=== PATIENT | male | born 1995 | race Caucasian/White ===

== ENCOUNTER 2018-04-15 14:57 | Emergency (ER) | payer SELFPAY ==
--- NOTE | 2018-04-15 16:09 | Diagnostic Imaging Report ---
YUDITH LUNDBERG [facility] [address] [facility] [address] [place] [address]. [id number] Report Submission Date: Apr 15, 2018 4:07:23 PM CDT Patient Study Name: MARIA EUGENIA MERIDA Date: Apr 15, 2018 3:50:04 PM CDT Modality Type: DX Gender: M Description: SHOULDER : 89 Institution: [facility] Physician: YUDITH LUNDBERG Right clavicle, two views. History: CLAVICLE PAIN PT STATES TREE FELL ON HIM Findings: There is a fracture of the middle 3rd of the clavicle with superior displacement of 1.9 cm of the medial portion. The acromioclavicular joint is normal. The imaged portion of the right hemithorax is otherwise normal. Impression: 1. Displaced right mid clavicular fracture. Electronically signed on Apr 15, 2018 4:07:23 PM CDT by: Diego GALLARDO
--- NOTE | 2018-04-15 16:10 | Diagnostic Imaging Report ---
YUDITH LUNDBERG [facility] [address] [facility] [address] [place], [place]. [address] Report Submission Date: Apr 15, 2018 4:08:31 PM CDT Patient Study Name: MARIA EUGENIA MERIDA Date: Apr 15, 2018 3:46:02 PM CDT Modality Type: CT\SR Gender: M Description: CT BRAIN W/O CONTRAST : 94 Institution: [facility] Physician: YUDITH LUNDBERG CT HEAD WO CONTRAST History: HEAD INJURY PT STATES TREE FELL ON HIM Technique: Standard noncontrast CT was performed with contiguous axial images acquired from skull base to vertex. Findings: There is no acute extra-axial fluid collection. Ventricles are of normal size, shape, and morphology. No mass effect or midline shift is present. No evidence of acute hemorrhage. The logan-white matter differentiation is normal. The visualized portions of the orbits, and paranasal sinuses, and mastoids are normal. No fractures are identified. Impression: 1. Normal non contrast brain CT. Electronically signed on Apr 15, 2018 4:08:31 PM CDT by: Diego Franco [facility]
--- NOTE | 2018-04-15 16:10 | Diagnostic Imaging Report ---
YUDITH LUNDBERG [facility] [address] [facility] [address] [place] [address]. [id number] Report Submission Date: Apr 15, 2018 4:09:13 PM CDT Patient Study Name: MARIA EUGENIA MERIDA Date: Apr 15, 2018 3:45:33 PM CDT Modality Type: DX Gender: M Description: SPINE : 89 Institution: [facility] Physician: YUDITH LUNDBERG Cervical spine, three views History:HEAD INJURY PT STATES TREE FELL ON HIM Findings: Vertebral body heights and alignments are normal. No significant intervertebral disc space narrowing. The facets are normal. No prevertebral soft tissue swelling. Impression: 1. No osseous abnormality. Electronically signed on Apr 15, 2018 4:09:13 PM CDT by: Diego GALLARDO
--- NOTE | 2018-04-15 16:16 | ED Physician Documentation ---
Upper Extremity Injury - HPI Stated Complaint: R shoulder pain Chief Complaint: Upper Extremity Injury Additional Information: Patient presents to ED with right shoulder pain after a tree (measuring 12 inches in diameter) fell on him while he was cutting wood today. He states the tree fell and struck him in the right shoulder/head. He thinks he lost consciousness for about 30 seconds. He has been ambulatory since that time. Onset: just prior to arrival Where: other (outside) Severity: moderate Duration: persistent since Context: blow (tree fell on him) Associated Symptoms: denies: numbness distally, loss of power to arms Modifying Factors: pain on movement - ROS CONST: denies: fever CVS/RESP: denies: chest pain, shortness of breath NEURO: denies: headache MS/SKIN/LYMPH: denies: neck pain, back pain GI/: denies: nausea, vomiting - PAST HX Past History: none Allergies/Adverse Reactions: Allergies Allergy/AdvReac Type Severity Reaction Status Date / Time No Known Allergies Allergy Verified 04/15/18 15:14 Home Medications: Ambulatory Orders Medication Instructions Recorded NK 04/15/18 - SOCIAL HX Smoking History: non-smoker Alcohol Use: none Drug Use: none - FAMILY HX Family History: none - VITAL SIGNS Vital Signs: Vital Signs Temp Pulse Resp BP Pulse Ox 98.4 F 99 H 16 149/82 97 04/15/18 15:15 04/15/18 15:15 04/15/18 15:15 04/15/18 15:15 04/15/18 15:15 - REVIEWED ASSESSMENTS Nursing Assessment Reviewed: Yes Vitals Reviewed: Yes ED Results Lab/Radiology - Radiology Radiology Impressions: Right clavicle, two views. History: CLAVICLE PAIN PT STATES TREE FELL ON HIM Findings: There is a fracture of the middle 3rd of the clavicle with superior displacement of 1.9 cm of the medial portion. The acromioclavicular joint is normal. The imaged portion of the right hemithorax is otherwise normal. Impression: 1. Displaced right mid clavicular fracture. Electronically signed on Apr 15, 2018 4:07:23 PM CDT by: Diego Franco CT HEAD WO CONTRAST History: HEAD INJURY PT STATES TREE FELL ON HIM Technique: Standard noncontrast CT was performed with contiguous axial images acquired from skull base to vertex. Findings: There is no acute extra-axial fluid collection. Ventricles are of normal size, shape, and morphology. No mass effect or midline shift is present. No evidence of acute hemorrhage. The logan-white matter differentiation is normal. The visualized portions of the orbits, and paranasal sinuses, and mastoids are normal. No fractures are identified. Impression: 1. Normal non contrast brain CT. Electronically signed on Apr 15, 2018 4:08:31 PM CDT by: Diego Franco Cervical spine, three views History:HEAD INJURY PT STATES TREE FELL ON HIM Findings: Vertebral body heights and alignments are normal. No significant intervertebral disc space narrowing. The facets are normal. No prevertebral soft tissue swelling. Impression: 1. No osseous abnormality. Electronically signed on Apr 15, 2018 4:09:13 PM CDT by: Diego Franco - Orders Orders: ED Orders Category Date Time Status C SPINE 2 OR 3 VIEWS [RAD] Stat Exams 04/15/[address] BRAIN W/O CONTRAST Stat Exams 04/15/18 Completed RIGHT CLAVICLE [CLAVICLE COMPLETE] [RAD] Stat Exams 04/15/18 Completed Upper Extremity Injury Physic - Physical Exam General Appearance: no acute distress, alert Hand: non-tender Wrist: normal inspection Elbow/Forearm: normal inspection Shoulder: bone tenderness, limited ROM, soft tissue tenderness, swelling Neuro/Vascular/Tendon: no vascular compromise Skin: warm,dry Head/ENT: nml inspection Neck/Back: nml inspection, non-tender. No: tenderness, swelling, ecchymosis Resp/CVS: chest non-tender, breath sounds nml, heart sounds nml, lungs clear Abdomen: non-tender, pelvis stable. No: tenderness Discharge Clincal Impression: Closed right clavicular fracture Qualifiers: Encounter type: initial encounter Clavicle location: shaft Fracture alignment: displaced Qualified Code(s): S42.021A - Displaced fracture of shaft of right clavicle, initial encounter for closed fracture Referrals: Primary Doctor,No [Primary Care Provider] - 2 Days Additional Instructions: Follow up with [facility] as soon as possible. Condition: Stable Disposition: 01 HOME, SELF-CARE Decision to Admit: NO Date of Decison to Admit: 04/15/18 Decision Time: 16:19
[2018-04-15 16:47] VITALS: BP 132/74
== END 2018-04-15 16:46 | disposition home or self-care (01) ==
LOC: ED 14:57
DX: S42.021A Displaced fracture of shaft of right clavicle, initial encounter for closed fracture (principal); S09.90XA Unspecified injury of head, initial encounter; W23.1XXA Caught, crushed, jammed, or pinched between stationary objects, initial encounter; Y92.9 Unspecified place or not applicable; Y93.9 Activity, unspecified; Y99.9 Unspecified external cause status
CPT/HCPCS: 70450; 72040; 73000; 99284